=== PATIENT | male | born 1975 | race Caucasian/White ===

== ENCOUNTER 2018-06-30 09:25 | Outpatient (CLI) | payer BC, OTHER, SELFPAY ==
[2018-07-01 16:46] LABS: Estradiol <12 pg/ml (0-40)
[2018-07-02 09:22] LABS: LH 5.2 mIU/ml (2-9)
[2018-07-02 09:25] LABS: FSH 8.5 mIU/ml (1.4-18.1); Prolactin 5.6 ng/ml (2.1-17.7)
[2018-07-04 13:13] LABS: Testosterone, Total 200 ng/dL (240-950)
== END 2018-06-30 09:45 ==
PROVIDERS: Visit Provider Urology
DX: N46.11 Organic oligospermia (principal)
CPT/HCPCS: 36415; 84402; 84403; 82670; 83001; 83002; 84146